=== PATIENT | female | born 1935 | race Native Hawaiian/Other Pacific Islander ===

== ENCOUNTER 2018-06-20 21:08 | Inpatient (IN) | payer OTHER ==
[2018-06-20] MEDS ORDERED: Sodium Chloride 0.9% 1,000 ML IV ONE (21:27)
[2018-06-20] MEDS ORDERED: Nitroglycerin 2% Ointment Foilpak UD TOP STA (21:27)
--- NOTE | 2018-06-20 21:29 | C.PDOC ---
History Of Present Illness 83 year old female presents to the ER with a complaint of chest tightness since noon today. Patient states she feels slightly SOB. Denies diaphoresis or lightheadedness. Patient has Hx of cardic bypass and diabetes. Chief Complaint (Nursing): Weakness/Neurological Deficit History Per: Patient History/Exam Limitations: no limitations Onset/Duration Of Symptoms: Hrs Current Symptoms Are (Timing): Still Present Seizure Or Post-ictal Symptoms: None Recent travel outside of the [place]: No - Symptoms Of CVA Associated Symptoms: denies: Impaired Speech, Seizure Activity, New Vision Deficit(Left), New Vision Deficit(Right), Decreased Ability To Walk, New Confusion Past Medical History Reviewed: Historical Data, Nursing Documentation, Vital Signs Vital Signs: Last Vital Signs Temp 97.7 F 06/20/18 21:10 Pulse 65 06/20/18 21:10 Resp 14 06/20/18 21:10 BP 129/68 06/20/18 21:10 Pulse Ox 98 06/20/18 21:10 - Medical History PMH: HTN, Hypercholesterolemia Denies: Chronic Kidney Disease Surgical History: CABG Family History: States: Unknown Family Hx - Social History Hx Alcohol Use: No Hx Substance Use: No - Immunization History Hx Tetanus Toxoid Vaccination: No Hx Influenza Vaccination: No Hx Pneumococcal Vaccination: No Review Of Systems Constitutional: Negative for: Sweats Cardiovascular: Negative for: Chest Pain, Palpitations, Light Headedness Respiratory: Positive for: Shortness of Breath, Other (Chest tightness) Gastrointestinal: Negative for: Nausea, Vomiting Neurological: Negative for: Weakness, Numbness Physical Exam - Physical Exam Appears: Non-toxic, No Acute Distress Skin: Normal Color, Warm, Dry Head: Atraumatic, Normacephalic Eye(s): bilateral: Normal Inspection Oral Mucosa: Moist Chest: Symmetrical, No Tenderness Cardiovascular: Rhythm Regular, Murmur (Systolic more over bases radiating from aortic area to neck) Respiratory: Normal Breath Sounds, No Rales, No Rhonchi, No Wheezing Gastrointestinal/Abdominal: Soft, No Tenderness Rectal: Other (Black stools) Back: No CVA Tenderness Neurological/Psych: Oriented x3, Normal Speech ED Course And Treatment - Laboratory Results Result Diagrams: 06/20/18 21:30 06/20/18 21:30 ECG: Interpreted By Me, Viewed By Me ECG Rhythm: Sinus Rhythm, 1st Degree HB ECG Interpretation: No Acute Changes, Abnormal Interpretation Of ECG: Sinus rhythm with 1st degree av block,QS in V1 to V3 abnormal tracings Rate From EC O2 Sat by Pulse Oximetry: 98 (Room air) Pulse Ox Interpretation: Normal Progress Note: EKG, blood work, and CXR ordered. Nitro bid applied, IV fluids administered. Occult blood test ordered. Disposition Discussed With Dr.: Aleksandr Hammond Doctor Will See Patient In The: Hospital Counseled Patient/Family Regarding: Diagnosis - Disposition Disposition: HOSPITALIZED Disposition Time: 03:56 Condition: STABLE Forms: [facility] (Salvadorean) - Clinical Impression Clinical Impression: Chest pain, Anemia, GI bleed - Scribe Statement The provider has reviewed the documentation as recorded by the Scribreyna Massey All medical record entries made by the Rafaelibe were at my direction and personally dictated by me. I have reviewed the chart and agree that the record accurately reflects my personal performance of the history, physical exam, medical decision making, and the department course for this patient. I have also personally directed, reviewed, and agree with the discharge instructions and disposition.
[2018-06-20 21:33] LABS: BASO # 0.1 K/uL (0.0-0.2); BASO % 1.1 % (0.0-2.0); EOS # 0.2 K/uL (0.0-0.7); EOS % 2.2 % (0.0-4.0); LYMPH # 2.2 K/uL (1.0-4.3); LYMPH % 30.7 % (20.0-40.0); MEAN CELL VOLUME 87.1 fL (81.0-99.0); MEAN CORPUSCULAR HEMOGLOBIN 27.4 pg (27.0-31.0); MEAN CORPUSCULAR HGB CONC 31.5 g/dL (33.0-37.0); MEAN PLATELET VOLUME 9.3 fL (7.2-11.7); MONO # 0.5 K/uL (0.0-0.8); MONO % 6.6 % (0.0-10.0); NEUT # 4.3 K/uL (1.8-7.0); NEUT % 59.4 % (50.0-75.0); NRBC % 0.3 % (0.0-2.0); RBC 2.42 Mil/uL (3.80-5.20); RED CELL DISTRIBUTION WIDTH 14.9 % (11.5-14.5); WHITE BLOOD COUNT 7.3 K/uL (4.8-10.8)
[2018-06-20] MEDS ORDERED: Sodium Chloride 0.9% 1,000 ML ONE (21:35)
[2018-06-20] MEDS ORDERED: Nitroglycerin 2% Ointment Foilpak UD TOP ONE (21:35)
[2018-06-20 21:44] LABS: HEMOGLOBIN 6.6 g/dL (11.0-16.0)
[2018-06-20 21:51] LABS: ALB/GLOB RATIO 1.2 (1.0-2.1); ALBUMIN 3.2 g/dL (3.5-5.0); ALT/SGPT 25 U/L (9-52); AST/SGOT 28 U/L (14-36); BLOOD UREA NITROGEN 83 mg/dL (7-17); CALCIUM 8.2 mg/dl (8.6-10.4); GFR NON-AFRICAN AMERICAN 43
[2018-06-20 21:54] LABS: PARTIAL THROMBOPLASTIN TIME 27 SECONDS (21-34)
[2018-06-20 22:06] LABS: D DIMER < 200 ng/mlDDU (0-243)
[2018-06-21 03:33] LABS: IRON 188 ug/dL (37-170)
[2018-06-21 03:43] LABS: % IRON SATURATION 72 (20-55); TOTAL IRON BINDING CAPACITY 260 ug/dL (250-450)
[2018-06-21] MEDS ORDERED: Home Med 1 UNIT (Atorvastatin [Lipitor] 10 MG) PO SCH (04:15)
[2018-06-21 04:41] LABS: FOLATE 12.3 ng/mL
--- NOTE | 2018-06-21 08:12 | CP.PCM.CON ---
History of Present Illness - History of Present Illness History of Present Illness: I was asked to see patient by Dr Hammond. Patient seen 06/21/18 [id number] patient is a 83 year old female with HTN CAD s/p CABG DM who presents with weakness and dyspnea. She has dyspnea on exertion after walking one block. The patient describes progressive weakness. She was found to have a Hgb 6.6. Consultation rquested. Review of Systems - Constitutional Constitutional: Malaise, Weakness - EENT Eyes: absent: As Per HPI, Blind Spots, Blurred Vision, Change in Vision, Decreased Night Vision, Diplopia, Discharge, Dry Eye, Exophthalmos, Floaters, Irritation, Itchy Eyes, Loss of Peripheral Vision, Pain, Photophobia, Requires Corrective Lenses, Sees Flashes, Spots in Vision, Tunnel Vision, Other Visual Disturbances, Loss of Vision, Other Ears: absent: As Per HPI, Decreased Hearing, Ear Discharge, Ear Pain, Tinnitus, Abnormal Hearing, Disequilibrium, Dizziness, Other Nose/Mouth/Throat: absent: As Per HPI, Epistaxis, Nasal Congestion, Nasal Discharge, Nasal Obstruction, Nasal Trauma, Nose Pain, Post Nasal Drip, Sinus Pain, Sinus Pressure, Bleeding Gums, Change in Voice, Dental Pain, Dry Mouth, Dysphagia, Halitosis, Hoarsness, Lip Swelling, Mouth Lesions, Mouth Pain, O dynophagia, Sore Throat, Throat Swelling, Tongue Swelling, Facial Pain, Neck Pain, Neck Mass, Other - Breasts Breasts: absent: As Per HPI, Change in Shape, Mass, Pain, Nipple Discharge, Nipple Inversion, Skin Changes, Swelling, Other - Cardiovascular Cardiovascular: Dyspnea on Exertion - Respiratory Respiratory: Dyspnea - Gastrointestinal Gastrointestinal: absent: As Per HPI, Abdominal Pain, Belching, Bloating, Change in Bowel Habits, Change in Stool Character, Coffee Ground Emesis, Constipation, Cramping, Diarrhea, Dyspepsia, Dysphagia, Early Satiety, Excessive Flatus, Fecal Incontinence, Heartburn, Hematemesis, Hematochezia, Loose Stools, Melena, Nausea, Odynophagia, Temesmus, Vomiting, Other - Genitourinary Genitourinary: absent: As Per HPI, Change in Urinary Stream, Difficulty Urinating, Dysuria, Flank Pain, Hematuria, Pyuria, Nocturia, Urinary Incontinence, Urinary Frequency, Urinary Hesitance, Urinary Urgency, Voiding Freq/Small Amts, Freq UTI, Hx Renal/Bladder Calculi, Hx /Renal Surgery, Bladder Distension, Other - Musculoskeletal Musculoskeletal: absent: As Per HPI, Abnormal Gait, Arthralgias, Atrophy, Back Pain, Deformity, Joint Swelling, Limited Range of Motion, Loss of Height, Muscle Cramps, Muscle Weakness, Myalgias, Neck Pain, Numbness, Radiating Pain into Limb, Stiffness, Tingling, Other - Integumentary Integumentary: absent: As Per HPI, Acne, Alopecia, Bleeding Lesions, Change in Hair, Change in Nails, Change in Pigmentation, Changing Lesions, Dry Skin, Erythema, Furuncle, Hirsutism, Lesions, New Lesions, Non-Healing Lesions, Photosensitivity, Pruritus, Rash, Skin Pain, Skin Ulcer, Sores, Striae, Swelling, Unusual Bruising, Wounds, Jaundice, Other - Neurological Neurological: absent: As Per HPI, Abnormal Gait, Abnormal Hearing, Abnormal Move ments, Abnormal Speech, Behavioral Changes, Burning Sensations, Confusion, Convulsions, Disequilibrium, Dizziness, Numbness, Focal Weakness, Frequent Falls, Headaches, Lack of Coordination, Loss of Vision, Memory Loss, Paresthesias, Radicular Pain, Restless Legs, Sensory Deficit, Syncope, Tingling, Tremor, Vertigo, Weakness, Other Visual Disturbances, Other - Psychiatric Psychiatric: absent: As Per HPI, Abnormal Sleep Pattern, Anhedonia, Anxiety, Auditory Hallucinations, Behavioral Changes, Change in Appetite, Change in Libido, Confusion, Depression, Difficulty Concentrating, Hallucinations, Homicidal Ideation, Hopelessness, Irritability, Memory Loss, Mood Swings, Panic Attacks, Paranoia, Suicidal Ideation, Visual Hallucinations, Tactile Hallucinations, Other - Endocrine Endocrine: absent: As Per HPI, Change in Body Appearance, Change in Libido, Cold Intolorance, Deepening of Voice, Excessive Sweating, Fatigue, Flushing, Heat Intolorance, Increase in Ring/Shoe/Hat Size, Palpitations, Polydipsia, Polyphagia, Polyuria, Other - Hematologic/Lymphatic Hematologic: absent: As Per HPI, Easy Bleeding, Easy Bruising, Lymphadenopathy, Other Past Patient History - Infectious Disease Hx of Infectious Diseases: None - Past Social History Smoking Status: Never Smoked - CARDIAC Hx Hypercholesterolemia: Yes Hx Hypertension: Yes - PULMONARY Hx Respiratory Disorders: No - NEUROLOGICAL Hx Neurological Disorder: No - HEENT Hx HEENT Problems: No - RENAL Hx Chronic Kidney Disease: No - ENDOCRINE/METABOLIC Hx Endocrine Disorders: Yes Hx Diabetes Mellitus Type 2: Yes - HEMATOLOGICAL/ONCOLOGICAL Hx Blood Disorders: No - INTEGUMENTARY Hx Dermatological Problems: No - MUSCULOSKELETAL/RHEUMATOLOGICAL Hx Musculoskeletal Disorders: No - GASTROINTESTINAL Hx Gastrointestinal Disorders: No - GENITOURINARY/GYNECOLOGICAL Hx Genitourinary Disorders: No - PSYCHIATRIC Hx Substance Use: No - SURGICAL HISTORY Hx Coronary Artery Bypass Graft: Yes - ANESTHESIA Hx Anesthesia: Yes Hx Anesthesia Reactions: No Meds Allergies/Adverse Reactions: Allergies Allergy/AdvReac Type Severity Reaction Status Date / Time No Known Allergies Allergy Unverified 06/20/18 21:15 - Medications Medications: Current Medications Amlodipine Besylate (Norvasc) 5 mg PO DAILY [facility] Carvedilol (Coreg) 12.5 mg PO DAILY [facility] Dorzolamide HCl (Trusopt) 0 ml OU HS [facility] Home Med (Alprazolam [Alprazolam Er]) 0.5 mg PO HS [facility] Home Med (Atorvastatin [Lipitor]) 10 mg PO DIN [facility] Sodium Chloride (Sodium Chloride 0.45%) 1,000 mls @ 30 mls/hr IV .Q24H [facility] Insulin Aspart (Novolog) 0 unit SC ACHS [facility]; Protocol Latanoprost (Xalatan Opht) 2.5 ml OU HS [facility] Mirtazapine (Remeron) 30 mg PO HS [facility] Physical Exam - Constitutional Appears: Non-toxic - Head Exam Head Exam: NORMAL INSPECTION - Eye Exam Eye Exam: Normal appearance - ENT Exam ENT Exam: Mucous Membranes Moist, Normal Exam - Neck Exam Neck exam: Positive for: Full Rom, Normal Inspection - Respiratory Exam Respiratory Exam: NORMAL BREATHING PATTERN - Cardiovascular Exam Cardiovascular Exam: REGULAR RHYTHM, Systolic Murmur - GI/Abdominal Exam GI & Abdominal Exam: Normal Bowel Sounds - Rectal Exam Rectal Exam: Deferred - Extremities Exam Extremities exam: Positive for: normal inspection - Back Exam Back exam: NORMAL INSPECTION - Neurological Exam Neurological exam: Alert, Oriented x3 - Psychiatric Exam Psychiatric exam: Normal Affect - Skin Skin Exam: Normal Color Results - Vital Signs Recent Vital Signs: Last Vital Signs Temp 97.6 F 06/21/18 07:00 Pulse 80 06/21/18 07:00 Resp 15 06/21/18 07:00 BP 109/34 L 06/21/18 07:00 Pulse Ox 100 06/21/18 07:00 - Labs Result Diagrams: 06/22/18 03:23 06/20/18 21:30 Labs: Laboratory Results - last 24 hr 06/20/18 06/20/18 06/20/18 21:30 21:30 21:30 WBC 7.3 RBC 2.42 L Hgb 6.6 L Hct 21.0 L MCV 87.1 MCH 27.4 MCHC 31.5 L RDW 14.9 H Plt Count 123 L MPV 9.3 Neut % (Auto) 59.4 Lymph % (Auto) 30.7 [place] % (Auto) 6.6 Eos % (Auto) 2.2 Baso % (Auto) 1.1 Neut # (Auto) 4.3 Lymph # (Auto) 2.2 [place] # (Auto) 0.5 Eos # (Auto) 0.2 Baso # (Auto) 0.1 Differential Comment APTT 27 D-Dimer, Quantitative < 200 Sodium 134 Potassium 5.1 Chloride 104 Carbon Dioxide 22 Anion Gap 13 BUN 83 H Creatinine 1.2 Est GFR ( Amer) 52 Est GFR (Non-Af Amer) 43 POC Glucose (mg/dL) Random Glucose 225 H Calcium 8.2 L Iron TIBC % Saturation Total Bilirubin 0.5 AST 28 ALT 25 Alkaline Phosphatase 52 Troponin I < 0.0120 Total Protein 5.8 L Albumin 3.2 L Globulin 2.6 Albumin/Globulin Ratio 1.2 Vitamin B12 Folate Stool Occult Blood Blood Type Antibody Screen 06/21/18 06/21/18 06/21/18 01:44 03:19 03:26 WBC RBC Hgb Hct MCV MCH MCHC RDW Plt Count MPV Neut % (Auto) Lymph % (Auto) [place] % (Auto) Eos % (Auto) Baso % (Auto) Neut # (Auto) Lymph # (Auto) [place] # (Auto) Eos # (Auto) Baso # (Auto) Differential Comment APTT D-Dimer, Quantitative Sodium Potassium Chloride Carbon Dioxide Anion Gap BUN Creatinine Est GFR ( Amer) Est GFR (Non-Af Amer) POC Glucose (mg/dL) 343 H Random Glucose Calcium Iron 188 H TIBC 260 % Saturation 72 H Total Bilirubin AST ALT Alkaline Phosphatase Troponin I Total Protein Albumin Globulin Albumin/Globulin Ratio Vitamin B12 Folate Stool Occult Blood Positive H Blood Type Antibody Screen 06/21/18 06/21/18 03:26 03:49 WBC RBC Hgb Hct MCV MCH MCHC RDW Plt Count MPV Neut % (Auto) Lymph % (Auto) [place] % (Auto) Eos % (Auto) Baso % (Auto) Neut # (Auto) Lymph # (Auto) [place] # (Auto) Eos # (Auto) Baso # (Auto) Differential Comment APTT D-Dimer, Quantitative Sodium Potassium Chloride Carbon Dioxide Anion Gap BUN Creatinine Est GFR ( Amer) Est GFR (Non-Af Amer) POC Glucose (mg/dL) Random Glucose Calcium Iron TIBC % Saturation Total Bilirubin AST ALT Alkaline Phosphatase Troponin I Total Protein Albumin Globulin Albumin/Globulin Ratio Vitamin B12 360 Folate 12.3 Stool Occult Blood Blood Type O POSITIVE Antibody Screen Negative - EKG Data EKG Interpreted by: Myself EKG shows normal: Sinus rhythm Assessment & Plan (1) Aortic stenosis Assessment and Plan: exam consistent with aortic stenosis. recommend echocardiogram Status: Acute (2) Chest pain Assessment and Plan: may be due to anemia in the setting of CAD. check troponin Status: Acute (3) CAD (coronary artery disease) Assessment and Plan: check troponin Status: Chronic (4) IDDM (insulin dependent diabetes mellitus) Assessment and Plan: aggressive therapy Status: Chronic
[2018-06-21] MEDS: (Novolog) Insulin Aspart, Recombinant 100 u/ml 10 ml vial SC SCH ×3 (08:19→17:35)
--- NOTE | 2018-06-21 08:23 | RAD ---
Chest x-ray single frontal view HISTORY: Chest pain. Comparison: None. Findings: Mild venous congestion. Right hilar prominence. Atherosclerotic calcification and plaque in the aorta. Tortuous ectatic aorta. Status post median sternotomy. Mild cardiomegaly. Degenerative changes in the spine and shoulders. Impression: Mild venous congestion. Right hilar prominence. Atherosclerotic calcification and plaque in the aorta. Tortuous ectatic aorta. Status post median sternotomy. Mild cardiomegaly.
--- NOTE | 2018-06-21 09:35 | CP.PCM.CON ---
History of Present Illness - History of Present Illness History of Present Illness: ASked today to evaluate pt for anemia. 83 yo female h/i CAD, CABG, DM, HTN, chol- presents with CP, SOB and found severe anemia. Pt reports CP- tightness, moderate. SOB is mild. Denies RB, melena, abd pain, dysphagia, wt loss. Reports colonsocopy in [place] 10 yrs ago. Review of Systems - Constitutional Constitutional: Fatigue, Weakness. absent: Fever, Weight Loss - EENT Eyes: absent: Photophobia Nose/Mouth/Throat: absent: Mouth Lesions - Cardiovascular Cardiovascular: Chest Pain, Dyspnea. absent: Palpitations, Syncope - Respiratory Respiratory: Dyspnea. absent: Cough, Hemoptysis, Wheezing - Gastrointestinal Gastrointestinal: absent: Abdominal Pain, Coffee Ground Emesis, Constipation, Diarrhea, Dysphagia, Hematemesis, Hematochezia, Loose Stools, Melena, Nausea, Odynophagia, Vomiting - Genitourinary Genitourinary: absent: Hematuria - Musculoskeletal Musculoskeletal: absent: Muscle Cramps, Myalgias - Integumentary Integumentary: absent: Erythema, Jaundice - Neurological Neurological: absent: Convulsions, Syncope Past Patient History - Infectious Disease Hx of Infectious Diseases: None - Past Social History Smoking Status: Never Smoked - CARDIAC Hx Hypercholesterolemia: Yes Hx Hypertension: Yes - PULMONARY Hx Respiratory Disorders: No - NEUROLOGICAL Hx Neurological Disorder: No - HEENT Hx HEENT Problems: No - RENAL Hx Chronic Kidney Disease: No - ENDOCRINE/METABOLIC Hx Endocrine Disorders: Yes Hx Diabetes Mellitus Type 2: Yes - HEMATOLOGICAL/ONCOLOGICAL Hx Blood Disorders: No - INTEGUMENTARY Hx Dermatological Problems: No - MUSCULOSKELETAL/RHEUMATOLOGICAL Hx Musculoskeletal Disorders: No - GASTROINTESTINAL Hx Gastrointestinal Disorders: No - GENITOURINARY/GYNECOLOGICAL Hx Genitourinary Disorders: No - PSYCHIATRIC Hx Substance Use: No - SURGICAL HISTORY Hx Coronary Artery Bypass Graft: Yes - ANESTHESIA Hx Anesthesia: Yes Hx Anesthesia Reactions: No Meds Allergies/Adverse Reactions: Allergies Allergy/AdvReac Type Severity Reaction Status Date / Time No Known Allergies Allergy Unverified 06/20/18 21:15 - Medications Medications: Current Medications Amlodipine Besylate (Norvasc) 5 mg PO DAILY [facility] Last Admin: 06/21/18 09:01 Dose: Not Given Carvedilol (Coreg) 12.5 mg PO DAILY [facility] Last Admin: 06/21/18 09:01 Dose: Not Given Dorzolamide HCl (Trusopt) 0 ml OU HS [facility] Home Med (Alprazolam [Alprazolam Er]) 0.5 mg PO HS [facility] Home Med (Atorvastatin [Lipitor]) 10 mg PO DIN [facility] Sodium Chloride (Sodium Chloride 0.45%) 1,000 mls @ 30 mls/hr IV .Q24H [facility] Insulin Aspart (Novolog) 0 unit SC ACHS [facility]; Protocol Last Admin: 06/21/18 08:19 Dose: Not Given Latanoprost (Xalatan Opht) 2.5 ml OU HS [facility] Mirtazapine (Remeron) 30 mg PO HS [facility] Physical Exam - Constitutional Appears: Non-toxic - Neck Exam Neck exam: Negative for: Tenderness - Respiratory Exam Respiratory Exam: Clear to Auscultation Bilateral - Cardiovascular Exam Cardiovascular Exam: RRR Additional comments: chest scar - GI/Abdominal Exam GI & Abdominal Exam: Normal Bowel Sounds, Soft. absent: Distended, Guarding, Mass, Rebound, Tenderness - Extremities Exam Extremities exam: Negative for: calf tenderness, pedal edema - Neurological Exam Neurological exam: Alert Additional comments: O x 2 Results - Vital Signs Recent Vital Signs: Last Vital Signs Temp 97.8 F 06/21/18 09:05 Pulse 68 06/21/18 09:05 Resp 18 06/21/18 09:05 BP 115/72 06/21/18 09:05 Pulse Ox 97 06/21/18 09:05 - Labs Result Diagrams: 06/20/18 21:30 06/20/18 21:30 Labs: Laboratory Results - last 24 hr 06/20/18 06/20/18 06/20/18 21:30 21:30 21:30 WBC 7.3 RBC 2.42 L Hgb 6.6 L Hct 21.0 L MCV 87.1 MCH 27.4 MCHC 31.5 L RDW 14.9 H Plt Count 123 L MPV 9.3 Neut % (Auto) 59.4 Lymph % (Auto) 30.7 [place] % (Auto) 6.6 Eos % (Auto) 2.2 Baso % (Auto) 1.1 Neut # (Auto) 4.3 Lymph # (Auto) 2.2 [place] # (Auto) 0.5 Eos # (Auto) 0.2 Baso # (Auto) 0.1 Differential Comment APTT 27 D-Dimer, Quantitative < 200 Sodium 134 Potassium 5.1 Chloride 104 Carbon Dioxide 22 Anion Gap 13 BUN 83 H Creatinine 1.2 Est GFR ( Amer) 52 Est GFR (Non-Af Amer) 43 POC Glucose (mg/dL) Random Glucose 225 H Calcium 8.2 L Iron TIBC % Saturation Total Bilirubin 0.5 AST 28 ALT 25 Alkaline Phosphatase 52 Troponin I < 0.0120 Total Protein 5.8 L Albumin 3.2 L Globulin 2.6 Albumin/Globulin Ratio 1.2 Vitamin B12 Folate Stool Occult Blood Blood Type Antibody Screen 06/21/18 06/21/18 06/21/18 01:44 03:19 03:26 WBC RBC Hgb Hct MCV MCH MCHC RDW Plt Count MPV Neut % (Auto) Lymph % (Auto) [place] % (Auto) Eos % (Auto) Baso % (Auto) Neut # (Auto) Lymph # (Auto) [place] # (Auto) Eos # (Auto) Baso # (Auto) Differential Comment APTT D-Dimer, Quantitative Sodium Potassium Chloride Carbon Dioxide Anion Gap BUN Creatinine Est GFR ( Amer) Est GFR (Non-Af Amer) POC Glucose (mg/dL) 343 H Random Glucose Calcium Iron 188 H TIBC 260 % Saturation 72 H Total Bilirubin AST ALT Alkaline Phosphatase Troponin I Total Protein Albumin Globulin Albumin/Globulin Ratio Vitamin B12 Folate Stool Occult Blood Positive H Blood Type Antibody Screen 06/21/18 06/21/18 03:26 03:49 WBC RBC Hgb Hct MCV MCH MCHC RDW Plt Count MPV Neut % (Auto) Lymph % (Auto) [place] % (Auto) Eos % (Auto) Baso % (Auto) Neut # (Auto) Lymph # (Auto) [place] # (Auto) Eos # (Auto) Baso # (Auto) Differential Comment APTT D-Dimer, Quantitative Sodium Potassium Chloride Carbon Dioxide Anion Gap BUN Creatinine Est GFR ( Amer) Est GFR (Non-Af Amer) POC Glucose (mg/dL) Random Glucose Calcium Iron TIBC % Saturation Total Bilirubin AST ALT Alkaline Phosphatase Troponin I Total Protein Albumin Globulin Albumin/Globulin Ratio Vitamin B12 360 Folate 12.3 Stool Occult Blood Blood Type O POSITIVE Antibody Screen Negative Assessment & Plan (1) CAD (coronary artery disease) Assessment and Plan: CABG 10 yrs ago. Status: Acute (2) IDDM (insulin dependent diabetes mellitus) Status: Acute (3) Anemia Assessment and Plan: g pos stool. ConsIDer PUD, vs colon lesion. Rec- PPI, transfuse, check HB. WILL NEED EGD WHEN CLEARED BY CARDIOLOGY. Status: Acute (4) Chest pain Status: Acute (5) GI bleed Assessment and Plan: G POS Status: Acute
[2018-06-21 12:28] LABS: HEMOGLOBIN 7.3 g/dL (11.0-16.0); MEAN CELL VOLUME 86.2 fL (81.0-99.0); MEAN CORPUSCULAR HGB CONC 33.6 g/dL (33.0-37.0); MEAN PLATELET VOLUME 9.3 fL (7.2-11.7); RBC 2.52 Mil/uL (3.80-5.20); RED CELL DISTRIBUTION WIDTH 14.3 % (11.5-14.5); WHITE BLOOD COUNT 7.7 K/uL (4.8-10.8)
--- NOTE | 2018-06-21 17:45 | CP.PCM.HP ---
History of Present Illness - History of Present Illness History of Present Illness: CC: Almost passed out HPI: 83 y/o female ssen in ER c/o dizzyness and almost pasing out. Present on Admission - Present on Admission Any Indicators Present on Admission: Yes History of DVT/PE: No History of Uncontrolled Diabetes: Yes Urinary Catheter: No Decubitus Ulcer Present: No Review of Systems - Review of Systems All systems: reviewed and no additional remarkable complaints except (weakness, almost passing out, dizzyness, no abdominal escamilla, no vomitting) Past Patient History - Infectious Disease Hx of Infectious Diseases: None - Past Medical History & Family History Past Medical History?: Yes - Past Social History Smoking Status: Never Smoked - CARDIAC Hx Cardiac Disorders: Yes Hx Hypercholesterolemia: Yes Hx Hypertension: Yes - PULMONARY Hx Respiratory Disorders: No - NEUROLOGICAL Hx Neurological Disorder: No - HEENT Hx HEENT Problems: No - RENAL Hx Chronic Kidney Disease: No - ENDOCRINE/METABOLIC Hx Endocrine Disorders: Yes Hx Diabetes Mellitus Type 2: Yes - HEMATOLOGICAL/ONCOLOGICAL Hx Blood Disorders: No - INTEGUMENTARY Hx Dermatological Problems: No - MUSCULOSKELETAL/RHEUMATOLOGICAL Hx Falls: No - GASTROINTESTINAL Hx Gastrointestinal Disorders: No - GENITOURINARY/GYNECOLOGICAL Hx Genitourinary Disorders: No - PSYCHIATRIC Hx Substance Use: No - SURGICAL HISTORY Hx Surgeries: Yes Hx Coronary Artery Bypass Graft: Yes - ANESTHESIA Hx Anesthesia: Yes Hx Anesthesia Reactions: No Hx Malignant Hyperthermia: No Has any member of the family had a problem w/ anesthesia?: No Meds Allergies/Adverse Reactions: Allergies Allergy/AdvReac Type Severity Reaction Status Date / Time No Known Allergies Allergy Unverified 06/20/18 21:15 Physical Exam - Constitutional Appears: Chronically Ill - Head Exam Head Exam: NORMAL INSPECTION - Eye Exam Eye Exam: Normal appearance - ENT Exam ENT Exam: Normal Exam - Neck Exam Neck exam: Positive for: Normal Inspection - Respiratory Exam Respiratory Exam: NORMAL BREATHING PATTERN - Cardiovascular Exam Cardiovascular Exam: REGULAR RHYTHM - GI/Abdominal Exam GI & Abdominal Exam: Soft - Rectal Exam Rectal Exam: Deferred - Extremities Exam Extremities exam: Negative for: pedal edema - Neurological Exam Neurological exam: Alert - Skin Skin Exam: Dry Results - Vital Signs Recent Vital Signs: Last Vital Signs Temp 97.6 F 06/21/18 15:34 Pulse 77 06/21/18 15:34 Resp 20 06/21/18 15:34 BP 148/73 06/21/18 15:34 Pulse Ox 100 06/21/18 15:34 - Labs Result Diagrams: 06/22/18 03:23 06/20/18 21:30 Labs: Laboratory Results - last 24 hr 06/20/18 06/20/18 06/20/18 21:06 21:30 21:30 WBC 7.3 RBC 2.42 L Hgb 6.6 L Hct 21.0 L MCV 87.1 MCH 27.4 MCHC 31.5 L RDW 14.9 H Plt Count 123 L MPV 9.3 Neut % (Auto) 59.4 Lymph % (Auto) 30.7 [place] % (Auto) 6.6 Eos % (Auto) 2.2 Baso % (Auto) 1.1 Neut # (Auto) 4.3 Lymph # (Auto) 2.2 [place] # (Auto) 0.5 Eos # (Auto) 0.2 Baso # (Auto) 0.1 Differential Comment APTT 27 D-Dimer, Quantitative < 200 Sodium Potassium Chloride Carbon Dioxide Anion Gap BUN Creatinine Est GFR ( Amer) Est GFR (Non-Af Amer) POC Glucose (mg/dL) 275 H Random Glucose Calcium Iron TIBC % Saturation Total Bilirubin AST ALT Alkaline Phosphatase Troponin I Total Protein Albumin Globulin Albumin/Globulin Ratio Vitamin B12 Folate Stool Occult Blood Blood Type Antibody Screen 06/20/18 06/21/18 06/21/18 21:30 01:44 03:19 WBC RBC Hgb Hct MCV MCH MCHC RDW Plt Count MPV Neut % (Auto) Lymph % (Auto) [place] % (Auto) Eos % (Auto) Baso % (Auto) Neut # (Auto) Lymph # (Auto) [place] # (Auto) Eos # (Auto) Baso # (Auto) Differential Comment APTT D-Dimer, Quantitative Sodium 134 Potassium 5.1 Chloride 104 Carbon Dioxide 22 Anion Gap 13 BUN 83 H Creatinine 1.2 Est GFR ( Amer) 52 Est GFR (Non-Af Amer) 43 POC Glucose (mg/dL) 343 H Random Glucose 225 H Calcium 8.2 L Iron TIBC % Saturation Total Bilirubin 0.5 AST 28 ALT 25 Alkaline Phosphatase 52 Troponin I < 0.0120 Total Protein 5.8 L Albumin 3.2 L Globulin 2.6 Albumin/Globulin Ratio 1.2 Vitamin B12 Folate Stool Occult Blood Positive H Blood Type Antibody Screen 06/21/18 06/21/18 06/21/18 03:26 03:26 03:49 WBC RBC Hgb Hct MCV MCH MCHC RDW Plt Count MPV Neut % (Auto) Lymph % (Auto) [place] % (Auto) Eos % (Auto) Baso % (Auto) Neut # (Auto) Lymph # (Auto) [place] # (Auto) Eos # (Auto) Baso # (Auto) Differential Comment APTT D-Dimer, Quantitative Sodium Potassium Chloride Carbon Dioxide Anion Gap BUN Creatinine Est GFR ( Amer) Est GFR (Non-Af Amer) POC Glucose (mg/dL) Random Glucose Calcium Iron 188 H TIBC 260 % Saturation 72 H Total Bilirubin AST ALT Alkaline Phosphatase Troponin I Total Protein Albumin Globulin Albumin/Globulin Ratio Vitamin B12 360 Folate 12.3 Stool Occult Blood Blood Type O POSITIVE Antibody Screen Negative 06/21/18 06/21/18 06/21/18 11:49 12:23 16:40 WBC 7.7 RBC 2.52 L Hgb 7.3 L Hct 21.7 L MCV 86.2 MCH 29.0 MCHC 33.6 RDW 14.3 Plt Count 108 L MPV 9.3 Neut % (Auto) Lymph % (Auto) [place] % (Auto) Eos % (Auto) Baso % (Auto) Neut # (Auto) Lymph # (Auto) [place] # (Auto) Eos # (Auto) Baso # (Auto) Differential Comment APTT D-Dimer, Quantitative Sodium Potassium Chloride Carbon Dioxide Anion Gap BUN Creatinine Est GFR ( Amer) Est GFR (Non-Af Amer) POC Glucose (mg/dL) 257 H 257 H Random Glucose Calcium Iron TIBC % Saturation Total Bilirubin AST ALT Alkaline Phosphatase Troponin I Total Protein Albumin Globulin Albumin/Globulin Ratio Vitamin B12 Folate Stool Occult Blood Blood Type Antibody Screen Assessment & Plan (1) Anemia Status: Acute (2) CAD (coronary artery disease) Status: Chronic (3) IDDM (insulin dependent diabetes mellitus) Status: Chronic - Assessment and Plan (Free Text) Assessment: A/P: Hg 6 on admission. IV fluid. Blood transfusion. GI and Cardiology cinsult
--- NOTE | 2018-06-21 21:27 | CARD ---
APPROVED REPORT Date of service: 06/21/2018 EXAM: Two-dimensional and M-mode echocardiogram with Doppler and color Doppler. INDICATION Chest Pain RISK FACTORS Hypertension Hyperlipidemia Diabetes 2D DIMENSIONS IVSd1.0 (0.7-1.1cm)Aortic Root (2D)3.2 (2.0-3.7cm) LVDd4.0 (3.9-5.9cm)LVOT Diameter1.9 (1.8-2.4cm) PWd0.8 (0.7-1.1cm)LA Dthfhv93 (18-58mL) LVDs2.2 (2.5-4.0cm)FS (%) 45.3 % LVEF (%)77.2 (>50%)LVEF (Patel's)68.18 % IVC0.00 cm M-Mode DIMENSIONS Left Atrium (MM)3.61 (2.5-4.0cm)IVSd0.68 (0.7-1.1cm) Aortic Root3.22 (2.2-3.7cm)LVDd4.46 (4.0-5.6cm) Aortic Cusp Exc.0.88 (1.5-2.0cm)PWd0.79 (0.7-1.1cm) FS (%) 44 %LVDs2.48 (2.0-3.8cm) LVEF (%)76 (>50%) Aortic Valve AoV Peak Ewvyacys040.8cm/sAoV VTI81.2cmAO Peak GR.42mmHg LVOT Peak Dppgoglk57.3cm/sLVOT VTI25.59cmAO Mean GR.26mmHg DEIDRA (VMAX)0.84wy0YNZ (VTI)0.87cm2 Mitral Valve MV E Hofkijiu392.8cm/sMV E Peak Gr.7mmHgMV A Wvfbjhwp386.2cm/s MV E Mean Gr.3mmHgMV XIS0ehV/A ratio0.9 MVA (PHT)407.78cm2 TDI Lateral E' Peak V4.80cm/sMedial E' Peak V3.58cm/sE/Lateral E'22.7 E/Medial E'30.4 Tricuspid Valve TR Peak Dvsqsnnx627xu/sTR Peak Gr.34yzSkGQXA47nvPl LEFT VENTRICLE The left ventricle is normal size. There is mild to moderate concentric left ventricular hypertrophy. The left ventricular function is normal. The left ventricular ejection fraction is within the normal range. There is normal LV segmental wall motion. Transmitral Doppler flow pattern is abnormal. RIGHT VENTRICLE The right ventricle is normal size. ATRIA The left atrium size is normal. The right atrium size is normal. AORTIC VALVE There is trace to mild aortic regurgitation. There is severe valvular aortic stenosis. MITRAL VALVE Mitral annular calcification is mild to moderate. Mitral regurgitation is mild to moderate. TRICUSPID VALVE There is moderate tricuspid regurgitation. <Conclusion> Normal LV systolic function. Diastolic dysfunction. Normal chamber size. LVH. Severe Aortic stenosis. Trace to mild AR. Mild to moderate MR. Moderate TR.
[2018-06-21] MEDS: Dorzolamide 2% Opht Sol 10ml OU SCH (22:50)
[2018-06-21] MEDS: Latanoprost 2.5 ml Opht Soln OU SCH (22:50)
[2018-06-22 03:28] LABS: HEMOGLOBIN 8.6 g/dL (11.0-16.0); MEAN CELL VOLUME 88.4 fL (81.0-99.0); MEAN CORPUSCULAR HEMOGLOBIN 29.6 pg (27.0-31.0); MEAN CORPUSCULAR HGB CONC 33.5 g/dL (33.0-37.0); RBC 2.91 Mil/uL (3.80-5.20); RED CELL DISTRIBUTION WIDTH 14.6 % (11.5-14.5); WHITE BLOOD COUNT 8.1 K/uL (4.8-10.8)
[2018-06-22] MEDS: Sodium Chloride 0.45% 1,000 ML IV SCH (04:05)
--- NOTE | 2018-06-22 08:09 | CP.PCM.PN ---
Subjective - Date & Time of Evaluation Date of Evaluation: 06/22/18 Time of Evaluation: 07:40 - Subjective Subjective: Pt awake and still inc BS; No cough, mild CP, no edema, no n/v Objective - Vital Signs/Intake and Output Vital Signs (last 24 hours): Temp Pulse Resp BP Pulse Ox 97.7 F 69 20 121/62 100 06/21/18 23:55 06/22/18 01:00 06/21/18 23:55 06/21/18 23:55 06/21/18 23:55 Intake and Output: 06/22/18 06/22/18 06:59 18:59 Intake Total 385 Balance 385 - Medications Medications: Current Medications Alprazolam (Xanax) 0.5 mg PO HS [facility] Last Admin: 06/21/18 21:10 Dose: 0.5 mg Amlodipine Besylate (Norvasc) 5 mg PO DAILY [facility] Last Admin: 06/21/18 09:01 Dose: Not Given Carvedilol (Coreg) 12.5 mg PO DAILY [facility] Last Admin: 06/21/18 09:01 Dose: Not Given Dorzolamide HCl (Trusopt) 0 ml OU [facility] Last Admin: 06/21/18 22:50 Dose: Not Given Sodium Chloride (Sodium Chloride 0.45%) 1,000 mls @ 30 mls/hr IV .Q24H [facility] Last Admin: 06/22/18 04:05 Dose: Not Given Influenza Virus Vaccine (Flucelvax Quad 3057-1126 Syr) 60 mcg IM .ONCE ONE Stop: 06/23/18 10:01 Insulin Aspart (Novolog) 0 unit SC [facility]; Protocol Last Admin: 06/21/18 17:35 Dose: 3 u Insulin Detemir (Levemir) 5 unit SC DAILY [facility] Latanoprost (Xalatan Opht) 2.5 ml OU HS [facility] Last Admin: 06/21/18 22:50 Dose: Not Given Mirtazapine (Remeron) 30 mg PO HS [facility] Last Admin: 06/21/18 22:49 Dose: 30 mg Pantoprazole Sodium (Protonix Inj) 40 mg IVP Q12 [facility] Last Admin: 06/21/18 22:49 Dose: 40 mg Pneumococcal Polyvalent Vaccine (Pneumovax 23 Vaccine) 0.5 ml IM .ONCE ONE Stop: 06/23/18 10:01 Rosuvastatin Calcium (Crestor) 5 mg PO DIN [facility] - Labs Labs: 06/22/18 03:23 06/20/18 21:30 APTT 27 SECONDS (21-34) 06/20/18 21:30 - Constitutional Appears: No Acute Distress - Eye Exam Eye Exam: Normal appearance - ENT Exam ENT Exam: Mucous Membranes Moist - Neck Exam Neck Exam: Full ROM. absent: Lymphadenopathy - Respiratory Exam Respiratory Exam: Clear to Ausculation Bilateral. absent: Rales, Rhonchi, Wheezes - Cardiovascular Exam Cardiovascular Exam: REGULAR RHYTHM, +S1, +S2, Murmur. absent: Gallop, JVD - GI/Abdominal Exam GI & Abdominal Exam: Soft. absent: Tenderness - Extremities Exam Extremities Exam: Full ROM, Normal Capillary Refill. absent: Calf Tenderness, Joint Swelling, Pedal Edema Assessment and Plan - Assessment and Plan (Free Text) Assessment: GI Bleed; Chest pain w/ Aortic stenosis Discuss w/ Dr Braden - high risk for hypotension Supportive care
--- NOTE | 2018-06-22 08:09 | CP.PCM.PN ---
Subjective - Date & Time of Evaluation Date of Evaluation: 06/22/18 Time of Evaluation: 07:45 - Subjective Subjective: patient is s/p transfusion. less chest pain Objective - Vital Signs/Intake and Output Vital Signs (last 24 hours): Temp Pulse Resp BP Pulse Ox 97.7 F 69 20 121/62 100 06/21/18 23:55 06/22/18 01:00 06/21/18 23:55 06/21/18 23:55 06/21/18 23:55 Intake and Output: 06/22/18 06/22/18 06:59 18:59 Intake Total 385 Balance 385 - Medications Medications: Current Medications Alprazolam (Xanax) 0.5 mg PO [facility] Last Admin: 06/21/18 21:10 Dose: 0.5 mg Amlodipine Besylate (Norvasc) 5 mg PO DAILY [facility] Last Admin: 06/21/18 09:01 Dose: Not Given Carvedilol (Coreg) 12.5 mg PO DAILY [facility] Last Admin: 06/21/18 09:01 Dose: Not Given Dorzolamide HCl (Trusopt) 0 ml OU [facility] Last Admin: 06/21/18 22:50 Dose: Not Given Sodium Chloride (Sodium Chloride 0.45%) 1,000 mls @ 30 mls/hr IV .Q24H [facility] Last Admin: 06/22/18 04:05 Dose: Not Given Influenza Virus Vaccine (Flucelvax Quad 3135-3243 Syr) 60 mcg IM .ONCE ONE Stop: 06/23/18 10:01 Insulin Aspart (Novolog) 0 unit SC [facility]; Protocol Last Admin: 06/21/18 17:35 Dose: 3 u Insulin Detemir (Levemir) 5 unit SC DAILY [facility] Latanoprost (Xalatan Opht) 2.5 ml OU [facility] Last Admin: 06/21/18 22:50 Dose: Not Given Mirtazapine (Remeron) 30 mg PO [facility] Last Admin: 06/21/18 22:49 Dose: 30 mg Pantoprazole Sodium (Protonix Inj) 40 mg IVP Q12 [facility] Last Admin: 06/21/18 22:49 Dose: 40 mg Pneumococcal Polyvalent Vaccine (Pneumovax 23 Vaccine) 0.5 ml IM .ONCE ONE Stop: 06/23/18 10:01 Rosuvastatin Calcium (Crestor) 5 mg PO DIN [facility] - Labs Labs: 06/22/18 03:23 06/20/18 21:30 APTT 27 SECONDS (21-34) 06/20/18 21:30 - Constitutional Appears: Non-toxic - Head Exam Head Exam: NORMAL INSPECTION - Eye Exam Eye Exam: Normal appearance - ENT Exam ENT Exam: Mucous Membranes Moist - Neck Exam Neck Exam: Full ROM - Respiratory Exam Respiratory Exam: NORMAL BREATHING PATTERN - Cardiovascular Exam Cardiovascular Exam: REGULAR RHYTHM, Murmur - GI/Abdominal Exam GI & Abdominal Exam: Normal Bowel Sounds - Rectal Exam Rectal Exam: Deferred - Extremities Exam Extremities Exam: absent: Pedal Edema - Back Exam Back Exam: NORMAL INSPECTION - Neurological Exam Neurological Exam: Alert - Psychiatric Exam Psychiatric exam: Normal Affect - Skin Skin Exam: Normal Color Assessment and Plan (1) Aortic stenosis Assessment & Plan: severe by echocardiogram. will treate conservatively at present. Keep systolic blood pressure greater than 140. Ideally would consider cardaic cath and if grafts are patent referral for TAVR, but this should not be done in this acute setting given anemia. Status: Acute (2) Chest pain Assessment & Plan: due to and anemia Status: Acute (3) CAD (coronary artery disease) Status: Chronic (4) IDDM (insulin dependent diabetes mellitus) Status: Chronic
[2018-06-22] MEDS ORDERED: Insulin Detemir 100 units/ml Vial (Levemir) SC SCH ×2 (10:00→22:45)
[2018-06-22] MEDS: (Novolog) Insulin Aspart, Recombinant 100 u/ml 10 ml vial SC SCH ×4 (10:23→21:57)
--- NOTE | 2018-06-22 10:50 | CP.PCM.PN ---
Subjective - Date & Time of Evaluation Date of Evaluation: 06/22/18 Time of Evaluation: 10:47 - Subjective Subjective: f/u anemia + [facility] Now comfortable Echo- severe Hgb stable post transfusion Denies GI symptoms or overt bleeding. S/P Colonoscopy > 5 years ago, never had EGD D/W RN- cardiology recommending defer EGD at present Objective - Vital Signs/Intake and Output Vital Signs (last 24 hours): Temp Pulse Resp BP Pulse Ox 98.2 F 66 18 148/67 95 06/22/18 07:00 06/22/18 07:00 06/22/18 07:00 06/22/18 07:00 06/22/18 07:00 Intake and Output: 06/22/18 06/22/18 06:59 18:59 Intake Total 385 Balance 385 - Medications Medications: Current Medications Alprazolam (Xanax) 0.5 mg PO HS [facility] Last Admin: 06/21/18 21:10 Dose: 0.5 mg Carvedilol (Coreg) 12.5 mg PO DAILY [facility] Last Admin: 06/22/18 10:25 Dose: Not Given Dorzolamide HCl (Trusopt) 0 ml OU HS [facility] Last Admin: 06/21/18 22:50 Dose: Not Given Sodium Chloride (Sodium Chloride 0.45%) 1,000 mls @ 30 mls/hr IV .Q24H [facility] Last Admin: 06/22/18 04:05 Dose: Not Given Influenza Virus Vaccine (Flucelvax Quad 5719-5993 Syr) 60 mcg IM .ONCE ONE Stop: 06/23/18 10:01 Insulin Aspart (Novolog) 0 unit SC [facility]; Protocol Last Admin: 06/22/18 10:23 Dose: Not Given Insulin Detemir (Levemir) 5 unit SC DAILY [facility] Last Admin: 06/22/18 10:23 Dose: Not Given Latanoprost (Xalatan Opht) 2.5 ml OU HS [facility] Last Admin: 06/21/18 22:50 Dose: Not Given Mirtazapine (Remeron) 30 mg PO HS [facility] Last Admin: 06/21/18 22:49 Dose: 30 mg Pantoprazole Sodium (Protonix Inj) 40 mg IVP Q12 [facility] Last Admin: 06/22/18 10:24 Dose: 40 mg Pneumococcal Polyvalent Vaccine (Pneumovax 23 Vaccine) 0.5 ml IM .ONCE ONE Stop: 06/23/18 10:01 Rosuvastatin Calcium (Crestor) 5 mg PO DIN [facility] - Labs Labs: 06/22/18 03:23 06/20/18 21:30 APTT 27 SECONDS (21-34) 06/20/18 21:30 - Constitutional Appears: Well, No Acute Distress - Head Exam Head Exam: NORMOCEPHALIC - Eye Exam Eye Exam: absent: Scleral icterus - Respiratory Exam Respiratory Exam: Clear to Ausculation Bilateral - Cardiovascular Exam Cardiovascular Exam: REGULAR RHYTHM, Murmur (harsh holosystolic murmur over the precordium) - GI/Abdominal Exam GI & Abdominal Exam: Soft. absent: Tenderness Assessment and Plan (1) Anemia Assessment & Plan: occult GI blood losses Should have EGD once cardiologically cleared PPI recommended Status: Acute (2) Aortic stenosis Assessment & Plan: managed by cardiology. Note appreciated- considering cath + TAVR Status: Acute (3) Chest pain Assessment & Plan: likely anginal, compounded by severe anemia Status: Acute (4) CAD (coronary artery disease) Status: Chronic (5) IDDM (insulin dependent diabetes mellitus) Status: Chronic
[2018-06-22] MEDS: Dorzolamide 2% Opht Sol 10ml OU SCH (22:22)
[2018-06-22] MEDS: Latanoprost 2.5 ml Opht Soln OU SCH (22:22)
[2018-06-23] MEDS: Sodium Chloride 0.45% 1,000 ML IV SCH ×2 (00:49→06:04)
[2018-06-23] MEDS: Pantoprazole 40 mg Susp UD PO SCH (06:05)
[2018-06-23 08:09] LABS: BASO % 0.7 % (0.0-2.0); EOS # 0.3 K/uL (0.0-0.7); EOS % 3.8 % (0.0-4.0); HEMOGLOBIN 9.1 g/dL (11.0-16.0); LYMPH # 1.6 K/uL (1.0-4.3); LYMPH % 24.2 % (20.0-40.0); MEAN CORPUSCULAR HEMOGLOBIN 30.6 pg (27.0-31.0); MEAN CORPUSCULAR HGB CONC 34.4 g/dL (33.0-37.0); MEAN PLATELET VOLUME 8.8 fL (7.2-11.7); MONO # 0.5 K/uL (0.0-0.8); MONO % 7.9 % (0.0-10.0); NEUT # 4.3 K/uL (1.8-7.0); NEUT % 63.4 % (50.0-75.0); NRBC % 0.4 % (0.0-2.0); RBC 2.98 Mil/uL (3.80-5.20); RED CELL DISTRIBUTION WIDTH 14.7 % (11.5-14.5); WHITE BLOOD COUNT 6.7 K/uL (4.8-10.8)
[2018-06-23 08:24] LABS: IRON 30 ug/dL (37-170)
[2018-06-23 08:30] LABS: ALB/GLOB RATIO 1.2 (1.0-2.1); CALCIUM 7.6 mg/dl (8.6-10.4)
[2018-06-23 08:34] LABS: % IRON SATURATION 10 (20-55); TOTAL IRON BINDING CAPACITY 288 ug/dL (250-450)
[2018-06-23 09:00] LABS: FERRITIN 76.9 ng/mL
[2018-06-23] MEDS: (Novolog) Insulin Aspart, Recombinant 100 u/ml 10 ml vial SC SCH ×4 (09:05→22:04)
[2018-06-23] MEDS ORDERED: Influenza Vaccine 60 mcg/0.5 mL SYR (4YR UP) IM ONE (10:00)
[2018-06-23] MEDS ORDERED: Pneumococcal 23-Valent Vaccine IM ONE ×2 (10:00→13:15)
--- NOTE | 2018-06-23 17:21 | CARD ---
APPROVED REPORT Date of service: 06/20/2018 EKG Measurement Heart [id number] <Conclusion> Sinus rhythm with 1st degree AV Low voltage QRS Cannot rule out Anteroseptal Abnormal ECG
[2018-06-23] MEDS: Insulin Detemir 100 units/ml Vial (Levemir) SC SCH (17:48)
--- NOTE | 2018-06-23 20:49 | PN ---
DATE: 06/22/2018 SUBJECTIVE: I was asked by the daughter of the patient to take over the service starting 06/22/2018. The patient was admitted for symptomatic anemia and she had packed RBCs transfusion. Stool occult blood was positive. EGD was not done or any further workup due to severe aortic stenosis that the patient was not cleared by Cardiology for any further workup. PHYSICAL EXAMINATION: VITAL SIGNS: Blood pressure 139/64, temperature 97.4, respiratory rate 18 and pulse 75. HEENT: Pupils equal, reactive to light. Pale mucosa of the conjunctivae, no congestion or exudation of the oropharynx or nasopharynx. NECK: Supple. No JVD. No carotid bruit. No lymph node. No thyromegaly. CHEST AND LUNGS: Bilateral symmetrical expansion. Good air exchange. Few basal rales. CARDIOVASCULAR: PMI not localized. S1, S2. The patient has ejection systolic murmur on the aortic area. ABDOMEN: Normoactive bowel sounds. No tenderness. No organomegaly. No masses. EXTREMITIES: No cyanosis, no clubbing, no edema. CENTRAL NERVOUS SYSTEM: Alert, awake, oriented x2. No neurological deficit could be appreciated. ASSESSMENT: 1. Severe aortic stenosis. 2. Symptomatic anemia. 3. Type 2 diabetes mellitus with hyperglycemia. 4. Hypertension. 5. Coronary artery disease, status post coronary artery bypass graft. PLAN: We will add discontinue amlodipine and switch the Coreg into bisoprolol. Monitor hemoglobin and hematocrit. We will discuss with the daughter regarding the further management. Jaqueline Lopez MD
--- NOTE | 2018-06-23 20:58 | PN ---
DATE: 06/23/2018 SUBJECTIVE: The patient is seen today, 06/23/2018. She is not in any cardiopulmonary distress at the time of this examination. PHYSICAL EXAMINATION: VITAL SIGNS: Blood pressure 172/67, temperature 98.9, respiratory rate 18 and pulse 66. HEENT: Pale mucosa of the conjunctivae. NECK: Supple. No JVD. No carotid bruit. No lymph node. No thyromegaly. CHEST AND LUNGS: Bilateral symmetrical expansion. Good air exchange. No rales, no rhonchi. CARDIOVASCULAR: PMI not localized. S1, S2. The patient has ejection systolic murmur. ABDOMEN: Normoactive bowel sounds. No tenderness. No organomegaly. No masses. EXTREMITIES: No cyanosis, no clubbing, no edema. CENTRAL NERVOUS SYSTEM: Alert, awake, oriented x2. No neurological deficit could be appreciated. ASSESSMENT: 1. Severe aortic stenosis. 2. Symptomatic anemia. 3. Gastrointestinal bleeding. 4. Coronary artery disease, status post coronary artery bypass graft about 25 years ago. 5. Hypertension. 6. Type 2 diabetes mellitus with hyperglycemia. PLAN: We will add ferrous sulfate 325 twice a day, add also Lasix 20 mg daily and continue bisoprolol. Discussed with the patient's daughter the need for further cardiac workup for possible aortic valve replacement by transcutaneous aortic valve replacement. The patient's daughter will discuss with her brother. Meanwhile, we are going to continue physical therapy and plan to discharge to subacute rehabilitation. Jaqueline Lopez MD
[2018-06-23] MEDS: Latanoprost 2.5 ml Opht Soln OU SCH (22:24)
[2018-06-23] MEDS: Dorzolamide 2% Opht Sol 10ml OU SCH (22:26)
[2018-06-24] MEDS: Pantoprazole 40 mg Susp UD PO SCH (06:07)
[2018-06-24] MEDS: (Novolog) Insulin Aspart, Recombinant 100 u/ml 10 ml vial SC SCH ×4 (08:38→22:13)
[2018-06-24] MEDS: Insulin Detemir 100 units/ml Vial (Levemir) SC SCH ×2 (09:42→17:41)
--- NOTE | 2018-06-24 11:48 | CP.PCM.PN ---
Subjective - Date & Time of Evaluation Date of Evaluation: 06/24/18 Time of Evaluation: 11:45 - Subjective Subjective: S: Feels beete. No chest pain. No GI bleed Objective - Vital Signs/Intake and Output Vital Signs (last 24 hours): Temp Pulse Resp BP Pulse Ox 98.7 F 66 20 146/62 97 06/24/18 00:00 06/24/18 01:00 06/24/18 00:00 06/24/18 09:41 06/24/18 00:00 Intake and Output: 06/24/18 06/24/18 06:59 18:59 Intake Total 0 Balance 0 - Medications Medications: Current Medications Alprazolam (Xanax) 0.5 mg PO [facility] Last Admin: 06/23/18 22:06 Dose: 0.5 mg Ascorbic Acid (Vitamin C 500 Mg Tab) 500 mg PO DAILY [facility] Last Admin: 06/24/18 09:41 Dose: 500 mg Bisoprolol Fumarate (Zebeta) 5 mg PO DAILY [facility] Last Admin: 06/24/18 09:41 Dose: 5 mg Dorzolamide HCl (Trusopt) 0 ml OU [facility] Last Admin: 06/23/18 22:26 Dose: 1 drop Ferrous Sulfate (Feosol) 325 mg PO BID [facility] Last Admin: 06/24/18 09:42 Dose: 325 mg Furosemide (Lasix) 20 mg PO DAILY [facility] Last Admin: 06/24/18 09:41 Dose: 20 mg Insulin Aspart (Novolog) 0 unit SC [facility]; Protocol Last Admin: 06/24/18 08:38 Dose: 2 u Insulin Detemir (Levemir) 12 unit SC BID [facility] Last Admin: 06/24/18 09:42 Dose: 12 u Latanoprost (Xalatan Opht) 2.5 ml OU [facility] Last Admin: 06/23/18 22:24 Dose: 2.5 ml Mirtazapine (Remeron) 30 mg PO [facility] Last Admin: 06/23/18 22:06 Dose: 30 mg Pantoprazole Sodium (Protonix Susp) 40 mg PO 0600 [facility] Last Admin: 06/24/18 06:07 Dose: 40 mg Rosuvastatin Calcium (Crestor) 5 mg PO DIN [facility] - Labs Labs: 06/23/18 07:56 06/23/18 07:56 APTT 27 SECONDS (21-34) 06/20/18 21:30 - Constitutional Appears: Chronically Ill - Head Exam Head Exam: NORMAL INSPECTION - Eye Exam Eye Exam: Normal appearance - ENT Exam ENT Exam: Normal Exam - Neck Exam Neck Exam: Normal Inspection - Respiratory Exam Respiratory Exam: NORMAL BREATHING PATTERN - Cardiovascular Exam Cardiovascular Exam: REGULAR RHYTHM - GI/Abdominal Exam GI & Abdominal Exam: Soft - Rectal Exam Rectal Exam: Deferred - Extremities Exam Extremities Exam: Normal Inspection - Neurological Exam Neurological Exam: Awake Assessment and Plan (1) Anemia Status: Acute (2) CAD (coronary artery disease) Status: Chronic (3) IDDM (insulin dependent diabetes mellitus) Status: Chronic (4) Aortic stenosis Status: Chronic - Assessment and Plan (Free Text) Assessment: A/P : Continue medications. Will discuss case with family
[2018-06-24] MEDS: Dorzolamide 2% Opht Sol 10ml OU SCH (22:14)
[2018-06-24] MEDS: Latanoprost 2.5 ml Opht Soln OU SCH (22:14)
[2018-06-25] MEDS: Pantoprazole 40 mg Susp UD PO SCH (05:21)
[2018-06-25] MEDS: (Novolog) Insulin Aspart, Recombinant 100 u/ml 10 ml vial SC SCH ×5 (07:30→17:52)
[2018-06-25 08:19] VITALS: RESP 20
[2018-06-25] MEDS: Insulin Detemir 100 units/ml Vial (Levemir) SC SCH ×2 (10:34→17:53)
--- NOTE | 2018-06-25 15:03 | CP.PCM.PN ---
Subjective - Date & Time of Evaluation Date of Evaluation: 06/25/18 Time of Evaluation: 15:02 - Subjective Subjective: anemic, OB positive stool, severe aortic stenosis Objective - Vital Signs/Intake and Output Vital Signs (last 24 hours): Temp Pulse Resp BP Pulse Ox 98.5 F 63 20 128/65 93 L 06/25/18 08:00 06/25/18 08:00 06/25/18 08:00 06/25/18 10:33 06/25/18 08:00 - Medications Medications: Current Medications Alprazolam (Xanax) 0.5 mg PO [facility] Last Admin: 06/24/18 22:13 Dose: 0.5 mg Ascorbic Acid (Vitamin C 500 Mg Tab) 500 mg PO DAILY [facility] Last Admin: 06/25/18 10:35 Dose: 500 mg Bisoprolol Fumarate (Zebeta) 5 mg PO DAILY [facility] Last Admin: 06/25/18 10:35 Dose: 5 mg Dorzolamide HCl (Trusopt) 0 ml OU [facility] Last Admin: 06/24/18 22:14 Dose: 1 drop Ferrous Sulfate (Feosol) 325 mg PO BID [facility] Last Admin: 06/25/18 10:33 Dose: 325 mg Furosemide (Lasix) 20 mg PO DAILY [facility] Last Admin: 06/25/18 10:33 Dose: 20 mg Insulin Aspart (Novolog) 0 unit SC [facility]; Protocol Last Admin: 06/25/18 12:23 Dose: 8 u Insulin Detemir (Levemir) 12 unit SC BID [facility] Last Admin: 06/25/18 10:34 Dose: 12 u Latanoprost (Xalatan Opht) 2.5 ml OU [facility] Last Admin: 06/24/18 22:14 Dose: 2.5 ml Mirtazapine (Remeron) 30 mg PO [facility] Last Admin: 06/24/18 22:13 Dose: 30 mg Pantoprazole Sodium (Protonix Susp) 40 mg PO 0600 [facility] Last Admin: 06/25/18 05:21 Dose: 40 mg Rosuvastatin Calcium (Crestor) 5 mg PO DIN [facility] - Labs Labs: 06/23/18 07:56 06/23/18 07:56 APTT 27 SECONDS (21-34) 06/20/18 21:30 - Constitutional Appears: No Acute Distress - Head Exam Head Exam: NORMOCEPHALIC Assessment and Plan (1) Anemia Assessment & Plan: admitted with Hgb 6 and OB positive stool WILL NEED EGD ONCE CLEARED BY CARDIOLOGY Let us know Status: Acute (2) Aortic stenosis Status: Chronic (3) Chest pain Status: Acute (4) CAD (coronary artery disease) Status: Chronic (5) IDDM (insulin dependent diabetes mellitus) Status: Chronic
--- NOTE | 2018-06-25 16:18 | CP.PCM.PN ---
Subjective - Date & Time of Evaluation Date of Evaluation: 06/25/18 Time of Evaluation: 16:17 - Subjective Subjective: PATIENT SEEN AND EXAMINED AT THE BEDSIDE Objective - Vital Signs/Intake and Output Vital Signs (last 24 hours): Temp Pulse Resp BP Pulse Ox 98.5 F 63 20 128/65 93 L 06/25/18 08:00 06/25/18 08:00 06/25/18 08:00 06/25/18 10:33 06/25/18 08:00 Intake and Output: 06/25/18 06/25/18 06:59 18:59 Intake Total 200 Balance 200 - Medications Medications: Current Medications Alprazolam (Xanax) 0.5 mg PO HS [facility] Last Admin: 06/24/18 22:13 Dose: 0.5 mg Ascorbic Acid (Vitamin C 500 Mg Tab) 500 mg PO DAILY [facility] Last Admin: 06/25/18 10:35 Dose: 500 mg Bisoprolol Fumarate (Zebeta) 5 mg PO DAILY [facility] Last Admin: 06/25/18 10:35 Dose: 5 mg Dorzolamide HCl (Trusopt) 0 ml OU [facility] Last Admin: 06/24/18 22:14 Dose: 1 drop Ferrous Sulfate (Feosol) 325 mg PO BID [facility] Last Admin: 06/25/18 10:33 Dose: 325 mg Furosemide (Lasix) 20 mg PO DAILY [facility] Last Admin: 06/25/18 10:33 Dose: 20 mg Insulin Aspart (Novolog) 0 unit SC [facility]; Protocol Last Admin: 06/25/18 12:23 Dose: 8 u Insulin Detemir (Levemir) 12 unit SC BID [facility] Last Admin: 06/25/18 10:34 Dose: 12 u Latanoprost (Xalatan Opht) 2.5 ml OU HS [facility] Last Admin: 06/24/18 22:14 Dose: 2.5 ml Mirtazapine (Remeron) 30 mg PO HS [facility] Last Admin: 06/24/18 22:13 Dose: 30 mg Pantoprazole Sodium (Protonix Susp) 40 mg PO 0600 [facility] Last Admin: 06/25/18 05:21 Dose: 40 mg Rosuvastatin Calcium (Crestor) 5 mg PO DIN [facility] - Labs Labs: 06/23/18 07:56 06/23/18 07:56 APTT 27 SECONDS (21-34) 06/20/18 21:30 Assessment and Plan - Assessment and Plan (Free Text) Assessment: PLACE UNDER THE SERVICE OF DR VERDUZCO AT [facility] FOLLOW UP WITH DR CORRAL AND DR BELLA ----CALL FOR APPOINTMENT CONTINUE HOME MEDICATION ACTIVITY TOLERATED CALL DR VERDUZCO FOR FURTHER ORDER
[2018-06-25 16:45] VITALS: BP 155/71; PULSE 70; TEMP 98.7; O2SAT 100
--- NOTE | 2018-06-25 17:55 | PQF ---
PROVIDER RESPONSE TEXT: Acute Blood Loss Anemia REVIEWER QUERY TEXT: Anemia Type Anemia is documented in the Medical Record. Please specify the cause (includes suspected or probable cause) Such as: The patient's Clinical Indicators include: ?83 year old female presents to the ER with a complaint of chest tightness since noon today. Patient states she feels slightly SOB?. Stool Occult Blood: Positive. RBC: 2.42 - HGB: 6.6/7.3/8.6 - HCT: 21.0/21.7/25.7 Please consider verify and document, the Clinical information matching with acute blood loss anemia Query created by: Jarred Elder on 06/22/2018 2:01 PM Electronically signed by: Jaqueline Lopez MD 06/25/2018 5:52 PM
--- NOTE | 2018-06-26 10:37 | DS ---
REASON FOR ADMISSION: An 83-year-old [place] female with history of severe aortic stenosis was admitted for symptomatic anemia. COURSE OF HOSPITALIZATION: The patient was found to have stool occult blood positive. The patient had a cardiology consultation done by Dr. Bose. Due to severe aortic stenosis, the patient was not cleared for any EGD or GI workup. The patient's daughter was informed about the need for further cardiology workup before proceeding with any GI workup. The patient's daughter and her brother are considering the referral to cardiac evaluation for cardiac cath and possible TAVR. The patient meanwhile was started on physical therapy and will be discharged to [facility]. During this hospitalization, the patient also was transfused packed RBCs and hemoglobin went up from 6.6 to 9.1. [facility] MD John
== END 2018-06-25 18:03 | DRG 812 ==
LOC: C.ER 21:08 → C.9E 06-21 03:59 → C.5S 06-21 09:15 → C.6T 06-21 09:45 → C.5S 06-21 09:48
PROVIDERS: ADMIT Internal Medicine; ATTEND Internal Medicine
PROC: 30233N1 Transfusion of Nonautologous Red Blood Cells into Peripheral Vein, Percutaneous Approach (ICD-10-PCS; principal; 2018-06-21)
DX: D62 Acute posthemorrhagic anemia (principal); K92.2 Gastrointestinal hemorrhage, unspecified; E11.65 Type 2 diabetes mellitus with hyperglycemia; I10 Essential (primary) hypertension; I25.119 Atherosclerotic heart disease of native coronary artery with unspecified angina pectoris; I35.0 Nonrheumatic aortic (valve) stenosis; E78.00 Pure hypercholesterolemia, unspecified; Z66 Do not resuscitate; Z95.1 Presence of aortocoronary bypass graft; Z79.4 Long term (current) use of insulin